=== PATIENT | female | born 1995 | race Caucasian/White ===

== ENCOUNTER 2019-08-06 10:50 | Outpatient (CLI) | payer BC, SELFPAY | END 2019-08-06 11:10 | PROVIDERS: PCP Nurse Practitioner Family; Visit Provider Urology | DX: R31.21 Asymptomatic microscopic hematuria (principal) | CPT/HCPCS: 87086 ==

== ENCOUNTER 2020-01-08 09:16 | Outpatient (REF) | payer BC, SELFPAY ==
--- NOTE | 2020-01-08 09:00 | PAPFT_PTH ---
PATIENT: Alena He LOC: [facility] U#:[id number] AGE/SX: 24/F ROOM: RE01/08/[address]: Cortney Clemens NP : 1995 BED: DIS: 01/08/2020 SPEC #: [id number] RECD: 01/08/20 13:04 STATUS: ROE CASTRO #: [id number] XOCHITL: 01/08/20 09:[address]: Cortney Clemens NP DEPT: [facility] Cytology RECD BY: Martha Masters ENTERED: 01/08/20 13:04 SP TYPE: PAPFT DOYLE DR: Jenny Cleveland Tissues: 1 - CX/ENDOCX FOR PAP SMEARS Procedures: PAP THIN PREP/[facility] Screening Comments: [id number]
== END 2020-01-08 09:36 ==
LOC: LBN 09:16
PROVIDERS: PCP Nurse Practitioner Family; Visit Provider Nurse Practitioner Women's Health
DX: Z12.4 Encounter for screening for malignant neoplasm of cervix (principal)
CPT/HCPCS: 88142